=== PATIENT | female | born 1980 | race Caucasian/White ===

== ENCOUNTER → 2018-05-25 | Outpatient (CLI) | payer BC ==
[~2018-05-25] MED LIST: CIPRO500 MG PO; CYCL10 PO; HYDACE5 PO; HYDR1TAB94 PO; IBUP800; IBUP800 PO; RXHYDACE PO; SEASONALE; Zofran8 MG PO
== END | disposition home or self-care (01) ==
LOC: LAB EV 10:02 → LAB SHORT 10:02
DX: R82.90 Unspecified abnormal findings in urine (principal)
CPT/HCPCS: 87077; 87086; 87186

== ENCOUNTER → 2019-10-08 | Outpatient (CLI) | payer BC ==
[2019-10-08 16:14] LABS: Source, Urine Clean Catch
[2019-10-08 17:14] LABS: Red Blood Cells, Urine Not Seen /hpf (0-2); Squamous Epithelial Cells Few /hpf (Few)
[2019-10-08 17:15] LABS: Bacteria Many /hpf
== END | disposition home or self-care (01) ==
LOC: OLS 16:09 → LAB SHORT 16:09 → LAB FUT 09-20 10:05 → EDSTATUS 09-20 10:05
PROVIDERS: Urology
DX: N20.0 Calculus of kidney (principal)
CPT/HCPCS: 81015; 87077; 87086; 87186

== ENCOUNTER → 2020-05-03 | Outpatient (CLI) | payer BC | END | disposition home or self-care (01) | LOC: LAB 12:55 → LAB SHORT 12:55 | DX: R43.2 Parageusia (principal); Z20.828 Contact with and (suspected) exposure to other viral communicable diseases | CPT/HCPCS: U0003 ==

== ENCOUNTER → 2021-01-28 | Outpatient (CLI) | payer BC | LOC: LAB SHORT 13:30 → LAB 13:30 | DX: N92.0 Excessive and frequent menstruation with regular cycle (principal) | CPT/HCPCS: 88305 ==

== ENCOUNTER 2021-06-22 08:11 | Day surgery (SDC) | payer BC ==
[~2021-06-22] VITALS: Ht 154.9 cm; Wt 89.2 kg
[~2021-06-22 08:11] MED LIST changes: +ALBU90OI INH; +Adipex-P37.5 M1 PO; +DEBLITANE0.35 MG PO
--- NOTE | 2021-06-22 09:15 | NUR ---
Ambulatory in Day Surgery History, Chart, Medications and Allergies reviewed before start of procedure. Lungs clear T/O to Auscultation. Patient confirms NPO status and agrees with scheduled surgery. Pre-Op teaching done. Pt verbalizes understanding. Patient States Post-Procedure ride home has been arranged.
[2021-06-22] MEDS ORDERED: OXYC5 PO (13:19)
--- NOTE | 2021-06-22 13:24 | NUR ---
UP TO BRP. AMBULATED WELL WITH STANDBY ASSIST. VOIDED. R/T BED. PT VERY TALKATIVE. DENIES PAIN AT THIS TIME
--- NOTE | 2021-06-22 13:25 | NUR ---
IV TO SL
--- NOTE | 2021-06-22 14:20 | NUR ---
PT REPORTS SHE HAS GOTTEN OOB TO BRP ON HER OWN AND SHONA WELL.
--- NOTE | 2021-06-22 16:11 | NUR ---
PT DENIES PAIN. DESIRES TO GO HOME. PT OOB MANY TIMES TO VOID ON HER OWN. REPORTS HAS FILLED HER SCRIPTS AND SHE IS GETTING OOB TO GET DRESSED.
--- NOTE | 2021-06-22 16:14 | NUR ---
UPDATE TO DR. MCMILLAN. PLAN TO D/C HOME NOW.
--- NOTE | 2021-06-22 16:30 | NUR ---
1630; D/C HOME. AMBULATING IN HALLS PER PT REQUEST. ACCOMPANIED BY .
--- NOTE | 2021-06-23 10:39 | NUR ---
06/23/21 1039 Nancy Romero VERIFICATIONS: EDIT CHART.
== END 2021-06-22 16:30 | disposition home or self-care (01) ==
LOC: ORSCMMR 08:11 → ORD 09:30 → ORSCMMR 09:30 → BC 12:21 → ORSCMMR 16:30
PROVIDERS: Obstetrics & Gynecology
PROC: 0U5F4ZZ Destruction of Cul-de-sac, Percutaneous Endoscopic Approach (ICD-10-PCS; principal; 2021-06-22 09:30)
PROC: 0UT9FZZ Resection of Uterus, Via Natural or Artificial Opening With Percutaneous Endoscopic Assistance (ICD-10-PCS; principal; 2021-06-22 09:30)
PROC: 0UT7FZZ Resection of Bilateral Fallopian Tubes, Via Natural or Artificial Opening With Percutaneous Endoscopic Assistance (ICD-10-PCS; principal; 2021-06-22 09:30)
DX: N92.0 Excessive and frequent menstruation with regular cycle (principal); Z01.818 Encounter for other preprocedural examination; N80.0 Endometriosis of uterus; D25.9 Leiomyoma of uterus, unspecified; N80.3 Endometriosis of pelvic peritoneum; J45.909 Unspecified asthma, uncomplicated; Z87.891 Personal history of nicotine dependence; M79.7 Fibromyalgia; E66.01 Morbid (severe) obesity due to excess calories; Z68.37 Body mass index [BMI] 37.0-37.9, adult; Z79.899 Other long term (current) drug therapy
CPT/HCPCS: 86850; 86900; 86901; 88307; A9270; J0171; J0690; J1100; J1885; J2250; J2370; J2405; J2704; J3010; J7120

== ENCOUNTER → 2021-08-04 | Outpatient (CLI) | payer BC ==
[~2021-08-04] MED LIST changes: +OXYC5 PO
[2021-08-04 12:24] LABS: Source, Urine Clean Catch
[2021-08-04 15:20] LABS: Bilirubin, Urine Neg (Neg); Blood, Urine Neg (Neg); Glucose Qualitative, Urine Neg (Neg); Ketones, Urine Neg (Neg); Leukocyte Esterase, Urine 3+ (Neg); Nitrite, Urine Neg (Neg); Protein, Urine 1+ (Neg); Urobilinogen, Urine NORM (Normal)
[2021-08-04 15:34] LABS: Appearance, Urine Turbid (Clear); Color, Urine Pale Yellow (P-Yellow)
[2021-08-04 15:35] LABS: Bacteria Few /hpf; Red Blood Cells, Urine 0-2 /hpf (0-2); Squamous Epithelial Cells Mod /hpf (Few)
== END | disposition home or self-care (01) ==
LOC: LAB 11:55 → LAB SHORT 11:55
PROVIDERS: Obstetrics & Gynecology
DX: R35.0 Frequency of micturition (principal)
CPT/HCPCS: 81001

== ENCOUNTER → 2021-12-09 | Outpatient (CLI) | payer BC ==
[2021-12-10 09:17] LABS: Candida species (DNA Probe) Negative (NEGATIVE); G. vaginalis (DNA Probe) Positive (NEGATIVE); T. vaginalis (DNA Probe) Negative (NEGATIVE)
[2021-12-11 02:12] LABS: CHLAMYDIA TRACHOMATIS, NAA Negative (Negative)
== END | disposition home or self-care (01) ==
LOC: LAB SHORT 15:37 → LAB 15:37
PROVIDERS: Family Medicine
DX: N39.0 Urinary tract infection, site not specified (principal)
CPT/HCPCS: 87077; 87086; 87186; 87480; 87491; 87510; 87591; 87660

== ENCOUNTER → 2022-08-09 | Outpatient (CLI) | payer OTHER ==
[~2022-08-09] MED LIST changes: +CIPR500 PO; +IBUP600 PO; +SULFAMETHOXAZO1 EAC1 PO; +TAMS.4ER PO; +TOPI50 PO
[2022-08-09 11:52] LABS: BASOPHILS ABSOLUTE AUTO 0.05 K/mm3 (0.00-0.23); BASOPHILS PERCENT AUTO 1 % (0-2); EOSINOPHILS ABSOLUTE AUTO 0.26 K/mm3 (0.00-0.68); EOSINOPHILS PERCENT AUTO 3 % (0-6); Hematocrit 33.9 % (33.0-51.0); Hemoglobin 11.5 g/dL (11.5-16.0); IMMATURE GRAN ABSOLUTE AUTO 0.03 K/mm3 (0.00-0.10); IMMATURE GRAN PERCENT AUTO 0 % (0-1); LYMPHOCYTES ABSOLUTE AUTO 1.07 K/mm3 (0.84-5.20); LYMPHOCYTES PERCENT AUTO 14 % (21-46); MONOCYTES ABSOLUTE AUTO 0.52 K/mm3 (0.16-1.47); MONOCYTES PERCENT AUTO 7 % (4-13); Mean Corpuscular HGB Conc 33.9 g/dL (31.5-36.5); Mean Corpuscular Volume 89 fL (80-100); Mean Platelet Volume 10.9 fL (9.1-12.4); NEUTROPHILS ABSOLUTE AUTO 5.64 K/mm3 (1.96-9.15); NEUTROPHILS PERCENT AUTO 75 % (41-73); Platelet Count 266 K/mm3 (150-400); RDW Coefficient Variation 13.1 % (11.7-14.2); RDW Standard Deviation 42.1 fL (35.1-46.3); Red Blood Cell Count 3.83 M/mm3 (3.80-5.20); White Blood Cell Count 7.57 K/mm3 (4.00-11.30)
[2022-08-09 12:25] LABS: Calcium, Blood 8.5 mg/dL (8.5-10.1); Creatinine, Blood 1.36 mg/dL (0.40-1.00); Potassium, Blood 4.3 mmol/L (3.5-5.5)
== END | disposition home or self-care (01) ==
LOC: LAB 09:41 → LAB SHORT 09:41
PROVIDERS: Nurse Practitioner Family
DX: N20.2 Calculus of kidney with calculus of ureter (principal); N39.0 Urinary tract infection, site not specified; R10.0 Acute abdomen; R11.2 Nausea with vomiting, unspecified; Z87.442 Personal history of urinary calculi
CPT/HCPCS: 80048; 83970; 85025; 87086